=== PATIENT | male | born 1990 | race Caucasian/White ===

== ENCOUNTER 2017-12-23 16:47 | Emergency (ER) | payer OTHER ==
[2017-12-23 19:28] LABS: Hematocrit 42 % (42-52); Hemoglobin 14.5 g/dl (14.0-18.0); Mean Corpuscular HGB Conc 34 g/dl (31-36); Mean Corpuscular Hemoglobin 29 pg (27-31); Mean Corpuscular Volume 85 fL (80-94); Mean Platelet Volume 9.8 um3 (7.4-10.4); Platelet Count 214 10^3/ul (150-450); Red Blood Count 5.01 10^6/ul (4.00-5.40); Red Cell Distribution Width 13 % (10.5-15)
[2017-12-23 19:44] LABS: EGFR Non-African American 87.6 (>60)
[2017-12-23 19:46] LABS: Urine Appearance Clear; Urine Blood Negative (Negative); Urine Color Yellow; Urine Ketones Trace (Negative); Urine Protein Negative (Negative); Urine Specific Gravity 1.029 (1.010-1.030); Urine Urobilinogen Negative (Negative)
[2017-12-23] MEDS ORDERED: Ibuprofen TAB* 600 MG PO ONE (19:56)
--- NOTE | 2017-12-23 20:12 | ED ---
Abdominal Pain/Male - HPI Summary HPI Summary: Patient is a 27-year-old male presenting to the ED with 2 day history of LUQ pain. He currently rates the pain a 2/10 in severity and intermittent, worse at night and lying onto that side. He denies any trauma or injury. Denies any abdominal surgeries. Denies any fevers, sweats, chills. Denies nausea, vomiting, diarrhea, however has been endorsing some constipation over the past 3 -4 days. Last BM was this morning and was normal in color and consistency. He states he has never had these types of symptoms in the past. He has not taken anything PO [id number] for relief. He has not used ice or heat. 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 Denies any chest pain, shortness of breath, headache. He states he is otherwise healthy, although he smokes approximately one pack per day. - History of Current Complaint Chief Complaint: EDAbdPain Stated Complaint: ABD PAIN Time Seen by Provider: 12/23/17 18:34 Hx Obtained From: Patient Onset/Duration: Sudden Onset Timing: Constant Severity Initially: Moderate Severity Currently: Moderate Pain Intensity: 2 Pain Scale Used: 0-10 Numeric Location: Discrete At: LUQ Radiates: No Character: Dull Aggravating Factor(s): Nothing Alleviating Factor(s): Nothing Associated Signs And Symptoms: Positive: Negative. Negative: Diaphoresis, Fever , Cough, Chest Pain, Constipation, Blood in Stool, Urinary Symptoms, Decreased Appetite, Vomiting, Diarrhea, Penile Discharge - Risk Factors Testicular Torsion: Negative Cardiac Risk Factors: Negative - Allergies/Home Medications Allergies/Adverse Reactions: Allergies Allergy/AdvReac Type Severity Reaction Status Date / Time No Known Allergies Allergy Verified 12/23/17 16:49 PMH/Surg Hx/FS Hx/Imm Hx Previously Healthy: Yes - Immunization History Hx Pertussis Vaccination: No Immunizations Up to Date: Yes Infectious Disease History: No Infectious Disease History: Denies: Traveled Outside the [place] in Last 30 Days - Social History Occupation: Employed Full-time Lives: With Family Alcohol Use: None Hx Substance Use: Yes Substance Use Type: Reports: Marijuana Hx Tobacco Use: Yes Smoking Status (MU): Heavy Every Day Tobacco Smoker Review of Systems Negative: Fever, Chills, Fatigue, Skin Diaphoresis Negative: Palpitations, Chest Pain Negative: Shortness Of Breath, Cough Positive: Abdominal Pain Genitourinary: Negative Positive: no symptoms reported, see HPI Negative: Arthralgia, Myalgia Skin: Negative Neurological: Negative All Other Systems Reviewed And Are Negative: Yes Physical Exam Triage Information Reviewed: Yes Vital Signs On Initial Exam: Initial Vitals Temp Pulse Resp BP Pulse Ox 98.9 F 90 16 159/98 97 12/23/17 16:49 12/23/17 16:49 12/23/17 16:49 12/23/17 16:49 12/23/17 16:49 Vital Signs Reviewed: Yes Appearance: Positive: No Pain Distress, Well-Nourished Skin: Positive: Warm, Skin Color Reflects Adequate Perfusion Head/Face: Positive: Normal Head/Face Inspection Eyes: Positive: EOMI, MENDEL, Conjunctiva Clear Neck: Positive: Nontender, No Lymphadenopathy Respiratory/Lung Sounds: Positive: Clear to Auscultation, Breath Sounds Present Cardiovascular: Positive: RRR, Pulses are Symmetrical in both Upper and Lower Extremities Abdomen Description: Positive: Soft, Other: - Tenderness to the LUQ Neurological: Positive: Sensory/Motor Intact, Alert, Oriented to Person Place, Time, Facial Symmetry Psychiatric: Positive: Affect/Mood Appropriate Diagnostics - Vital Signs Vital Signs Temp Pulse Resp BP Pulse Ox 12/23/17 16:49 98.9 F 90 16 159/98 97 - Laboratory Lab Results: Lab Results 12/23/17 12/23/17 12/23/17 Range/Units 19:15 19:15 19:37 WBC 11.0 H (3.5-10.8) 10^3/ul RBC 5.01 (4.00-5.40) 10^6/ul Hgb 14.5 (14.0-18.0) g/dl Hct 42 (42-52) % MCV 85 (80-94) fL MCH 29 (27-31) pg MCHC 34 (31-36) g/dl RDW 13 (10.5-15) % Plt Count 214 (150-450) 10^3/ul MPV 9.8 (7.4-10.4) um3 Sodium 139 (135-145) mmol/L Potassium 4.2 (3.5-5.0) mmol/L Chloride 102 (101-111) mmol/L Carbon Dioxide 31 (22-32) mmol/L Anion Gap 6 (2-11) mmol/L BUN 15 (6-24) mg/dL Creatinine 1.02 (0.67-1.17) mg/dL Est GFR ( Amer) 106.0 (>60) Est GFR (Non-Af Amer) 87.6 (>60) BUN/Creatinine Ratio 14.7 (8-20) Glucose 113 H (70-100) mg/dL Calcium 9.8 (8.6-10.3) mg/dL Total Bilirubin 0.60 (0.2-1.0) mg/dL AST 27 (13-39) U/L ALT 30 (7-52) U/L Alkaline Phosphatase 64 (34-104) U/L C-Reactive Protein 3.75 (<8.01) mg/L Total Protein 7.2 (6.4-8.9) g/dL Albumin 4.9 (3.2-5.2) g/dL Globulin 2.3 (2-4) g/dL Albumin/Globulin Ratio 2.1 (1-3) Amylase 14 L (29-103) U/L Lipase < 10 L (11.0-82.0) U/L Urine Color Yellow Urine Appearance Clear Urine pH 5.0 (5-9) Ur Specific [place] 1.029 (1.010-1.030) Urine Protein Negative (Negative) Urine Ketones Trace A (Negative) Urine Blood Negative (Negative) Urine Nitrate Negative (Negative) Urine Bilirubin Negative (Negative) Urine Urobilinogen Negative (Negative) Ur Leukocyte Esterase Negative (Negative) Urine Glucose Negative (Negative) Result Diagrams: 12/23/17 19:15 12/23/17 19:15 Lab Statement: Any lab studies that have been ordered have been reviewed, and results considered in the medical decision making process. Abdominal Pain Fem Course/Dx - Course Course Of Treatment: During the course treatment, the patient is evaluated for LUQ pain present over the course of 2 days, intermittent and currently rating a 2 out of 10 in severity. He states the pain is aching, worse at night and worse lying onto the side. The pain began to the left side body and radiated into the LUQ. Denies any pain over the flanks at this time. Denies any nausea , vomiting, diarrhea, constipation. Last bowel movement this morning and was normal in consistency and color. Labs obtained which are all WNL, showing no elevated pancreatic enzymes, liver enzymes or signs of infection. Abdominal x- ray obtained as patient has been complaining of constipation over the past few days, however last BM this morning and was normal, so this is an unlikely scenario for the cause of his LUQ pain. On physical examination, there is no CVA tenderness bilaterally. Negative Sales's, no tenderness at McBurney's point. Slight tenderness to the LUQ on deep palpation only. Discussed treatment options with patient and patient would like to defer CT scan at this time. He will take ibuprofen 3 times daily for the next several days and use heat to the area. He understands to return to the ED for any worsening or changing symptoms. - Diagnoses Provider Diagnoses: LUQ pain Discharge - Sign-Out/Discharge Documenting (check all that apply): Patient Departure - Discharge Plan Condition: Stable Disposition: HOME Referrals: No Primary Care Phys,NOPCP [Primary Care Provider] - Additional Instructions: Ibuprofen 600mg three times daily Maalox liquid may help if you begin to develop any misternal discomfort Return to the ED if symptoms persist or worsen\ Moist heat to the area - Billing Disposition and Condition Condition: STABLE Disposition: Home
[2017-12-23 20:16] VITALS: BP 159/90
--- NOTE | 2017-12-24 08:42 | RAD ---
INDICATION: Abdominal pain and constipation. COMPARISON: There are no relevant prior studies available for comparison. TECHNIQUE: Supine and upright views of the abdomen were obtained. FINDINGS: The small bowel and colon appear nondistended. No free intraperitoneal air is seen. There is a small amount of retained stool. No abnormal calcifications are seen. IMPRESSION: NO EVIDENCE FOR OBSTRUCTION. R0
== END 2017-12-23 20:16 | disposition home or self-care (01) ==
LOC: ED 16:47
DX: R10.12 Left upper quadrant pain (principal); F17.200 Nicotine dependence, unspecified, uncomplicated
CPT/HCPCS: 36415; 74019; 80053; 81003; 82150; 83690; 85027; 86140; 99282; A9270-GY

== ENCOUNTER 2018-07-02 18:55 | Emergency (ER) | payer OTHER ==
[2018-07-02 19:58] VITALS: BP 152/98
[2018-07-02] MEDS ORDERED: Amoxicillin PO (*) 500 MG CAP PO ONE (20:35)
--- NOTE | 2018-07-02 20:37 | UC ---
Ear Complaint HPI - HPI Summary HPI Summary: 27 yo male with sinus pressure and pain/nasal congestion x 2 weeks now with fever/bilateral otalgia and decreased hearing PETs as child x 6 - History of Current Complaint Chief Complaint: UCRespiratory Stated Complaint: EAR PAIN Time Seen by Provider: 07/02/18 19:53 Hx Obtained From: Patient Onset/Duration: Gradual Onset, Lasting Weeks Severity Initially: Mild Severity Currently: Mild Pain Intensity: 3 Pain Scale Used: 0-10 Numeric Aggravating Factors: Other Alleviating Factors: Nothing Associated Signs/Symptoms: Positive: Hearing Loss, URI Symptoms Related History: Prior ENT Surgery - PETs - Allergies/Home Medications Allergies/Adverse Reactions: Allergies Allergy/AdvReac Type Severity Reaction Status Date / Time No Known Allergies Allergy Verified 07/02/18 19:53 Home Medications: Home Medications Acetaminophen [Tylenol Extra Strength] 1,000 mg PO Q12HR PRN 07/02/18 [History Confirmed 07/02/18] Naproxen Sodium [Aleve] 440 mg PO Q12H PRN 07/02/18 [History Confirmed 07/02/18] PMH/Surg Hx/FS Hx/Imm Hx Previously Healthy: Yes - Surgical History Surgical History: Yes Surgery Procedure, Year, and Place: multiple ear tubes. tooth surgery - Family History Known Family History: Positive: Hypertension - Social History Alcohol Use: None Substance Use Type: None Smoking Status (MU): Heavy Every Day Tobacco Smoker Amount Used/How Often: 1PPD Review of Systems All Other Systems Reviewed And Are Negative: Yes Constitutional: Positive: Fever, Chills Skin: Positive: Negative Eyes: Positive: Negative ENT: Positive: Ear Ache, Nasal Discharge, Sinus Congestion, Sinus Pain/ Tenderness Respiratory: Positive: Cough Cardiovascular: Positive: Negative Gastrointestinal: Positive: Negative Genitourinary: Positive: Negative Motor: Positive: Negative Neurovascular: Positive: Negative Musculoskeletal: Positive: Negative Neurological: Positive: Negative Psychological: Positive: Negative Physical Exam Triage Information Reviewed: Yes Appearance: Well-Appearing, No Pain Distress, Well-Nourished Vital Signs: Initial Vital Signs Temp 100.7 F 07/02/18 19:54 Pulse 112 07/02/18 19:54 Resp 18 07/02/18 19:54 BP 152/98 07/02/18 19:54 Pulse Ox 100 07/02/18 19:54 Vital Signs Reviewed: Yes Eye Exam: Normal ENT: Positive: Nasal congestion, Nasal drainage, TM bulging - BILAT, TM dull, TM red - BILAT, Uvula midline. Negative: Hearing grossly normal, Trismus, Muffled voice, Hoarse voice, Sinus tenderness Dental Exam: Normal Neck: Positive: Supple, Nontender, No Lymphadenopathy Respiratory: Positive: Lungs clear, Normal breath sounds, No respiratory distress, No accessory muscle use Cardiovascular: Positive: RRR, No Murmur Musculoskeletal: Positive: ROM Intact, No Edema Neurological: Positive: Alert Psychological Exam: Normal Skin Exam: Normal Ear Complaint Course/Dx - Differential Dx/Diagnosis Provider Diagnosis: Bilateral otitis media Discharge - Sign-Out/Discharge Documenting (check all that apply): Patient Departure All imaging exams completed and their final reports reviewed: No Studies - Discharge Plan Condition: Stable Disposition: HOME Prescriptions: Amoxicillin PO (*) [Amoxicillin 875 MG (*)] 875 mg PO BID #20 tab Referrals: No Primary Care Phys,NOPCP [Primary Care Provider] - Additional Instructions: ear recheck in 2-3 weeks if hearing not back to normal tylenol or advil for pain - Billing Disposition and Condition Condition: STABLE Disposition: Home
== END 2018-07-02 20:43 | disposition home or self-care (01) ==
LOC: UCEAST 18:55
DX: H66.93 Otitis media, unspecified, bilateral (principal); R50.9 Fever, unspecified; R09.81 Nasal congestion; R05 Cough; F17.200 Nicotine dependence, unspecified, uncomplicated
CPT/HCPCS: 99212; A9270-GY; G0463

== ENCOUNTER 2018-07-17 15:30 | Emergency (ER) | payer OTHER ==
--- NOTE | 2018-07-17 16:38 | UC ---
Ear Complaint HPI - HPI Summary HPI Summary: Patient presents to urgent care for reevaluation of his ears. Patient was treated with a ten-day course of amoxicillin for bilateral ear infection approximately 15 days ago. Patient states she still has a little bit discomfort in his right ear. Patient states both of them still feel kind of clogged. Mild pain. No fevers or chills. No nausea vomiting. Patient states his sinuses are still slightly congested with mild postnasal drip. Patient denies headache or chest pain. No vision changes. No fever, chills, rash. Patient's medications reviewed this visit. he is not taking any over the counter medications - no decongestants. Of note, patient does have a history of hypertension but is not on medication for over 3 years as he doesn't have a doctor. Patient has not been taking any [id number] decongestants. Patient does have a history of bilateral tympanostomy tubes. - History of Current Complaint Chief Complaint: UCEar Stated Complaint: EAR COMPLAINT Time Seen by Provider: 07/17/18 16:21 Severity Initially: Mild Severity Currently: Mild Pain Intensity: 1 Pain Scale Used: 0-10 Numeric - Allergies/Home Medications Allergies/Adverse Reactions: Allergies Allergy/AdvReac Type Severity Reaction Status Date / Time No Known Allergies Allergy Verified 07/17/18 16:01 PMH/Surg Hx/FS Hx/Imm Hx Previously Healthy: Yes Cardiovascular History: Hypertension - no medx 3 years - no pcp - Surgical History Surgical History: Yes Surgery Procedure, Year, and Place: multiple ear tubes. tooth surgery - Family History Known Family History: Positive: Hypertension - Social History Occupation: Employed Full-time Alcohol Use: None Substance Use Type: None Smoking Status (MU): Heavy Every Day Tobacco Smoker Amount Used/How Often: 1PPD Review of Systems All Other Systems Reviewed And Are Negative: Yes Constitutional: Positive: Negative Skin: Positive: Negative Eyes: Positive: Negative ENT: Positive: Ear Ache, Nasal Discharge, Sinus Congestion Respiratory: Positive: Negative Cardiovascular: Positive: Negative Physical Exam - Summary Physical Exam Summary: Vital Signs Reviewed: Yes A+Ox3, no distress Eyes: Conjunctiva Clear, MENDEL. EOM intact and full ENT: Hearing grossly normal right ear ++ fluid, erythema, mild retraction left scant fluid, scar turbinates inflamemd and boggy + PND , uvula midline, no exudate, no erythema Neck: Positive: Supple Respiratory: Positive: No respiratory distress, No accessory muscle use + CTA throughout no w/r Cardiovascular: RRR nl s1, s2 no m/r CBT <2 sec abd soft + BS nt/nd no guarding, no distension Musculoskeletal Exam: VIRK x 4 without difficulty Strength Intact, ROM Intact Neurological: Positive: Alert, + sensation throughout Psychological: Positive: Normal Response To Family Skin: Positive: no rash, no ecchymosis Triage Information Reviewed: Yes Vital Signs: Initial Vital Signs Temp 100.2 F 07/17/18 15:56 Pulse 90 07/17/18 15:56 Resp 16 07/17/18 15:56 BP 149/102 07/17/18 15:56 Pulse Ox 100 07/17/18 15:56 Ear Complaint Course/Dx - Course Course Of Treatment: Patient presents for reevaluation of his ears. Patient was given a ten-day course of amoxicillin for bilateral otitis. On exam patient continues to have fluid erythema of his right ear. Patient was scant fluid in his left ear. Patient does have turbinate inflammation. We will prescribe Omnicef. Flonase. Loratadine. Recommend patient follow-up with [facility] to establish with a new primary care doctor. Patient does have elevated blood pressure. Recheck manually was improved. Patient states that a history of hypertension but is not on any medications as he doesn't have a doctor. Of note also patient's temperature was slightly elevated when he first got here. Patient moans long discussion in from outside. Recheck was normal. Patient comfortable in agreement with plan. Patient advised to go by avoid decongestants as well as to decrease his cigarette smoking. Patient states understanding agreement with plan. - Differential Dx/Diagnosis Provider Diagnosis: Otitis media, High blood pressure Discharge - Sign-Out/Discharge Documenting (check all that apply): Patient Departure All imaging exams completed and their final reports reviewed: No Studies - Discharge Plan Condition: Stable Disposition: HOME Prescriptions: Cefdinir [Cefdinir 300 MG CAP] 300 mg PO BID #20 cap Fluticasone NASAL SPRAY 50MCG* [Flonase NASAL SPRAY 50MCG*] 2 spray BOTH NARES DAILY #1 btl Loratadine 10 mg PO DAILY #30 tablet Patient Education Materials: Ear Infection (ED), Hypertension (ED) Referrals: [facility] [place] [facility] [Outside] No Primary Care Phys,NOPCP [Primary Care Provider] - Additional Instructions: - Stay well hydrated. Drink plenty of non-alcoholic, non-caffinated beverages. - Alternate ibuprofen (Advil, Motrin) 600mg and Tylenol every 3 hours for pain or fever. Take with food. Do NOT take for more than 4-5 days. - These infections are spread by secretions - do NOT share eating or drinking utensils - clean items you share with other people such as cell phones, computer mouse, TV remote, computer tablets,etc. Once you have been antibiotics for 2 days, change your toothbrush and your pillowcase. - get plenty of restful sleep - use allergy medicine as prescribed - use nasal spray as prescribed - as discussed, you have high blood pressure - it is recommended you contact the physician referral center to establish with a primary care provider - ongoing, elevated blood pressure is dangerous as it can cause heart attacks, strokes, and kidney issues - Billing Disposition and Condition Condition: STABLE Disposition: Home
[2018-07-17 16:43] VITALS: BP 138/86
== END 2018-07-17 16:50 | disposition home or self-care (01) ==
LOC: UCEAST 15:30
DX: H66.93 Otitis media, unspecified, bilateral (principal); R09.82 Postnasal drip; R09.89 Other specified symptoms and signs involving the circulatory and respiratory systems; I10 Essential (primary) hypertension; F17.200 Nicotine dependence, unspecified, uncomplicated
CPT/HCPCS: 99202; G0463